=== PATIENT | female | born 1975 | race Caucasian/White ===

== ENCOUNTER 2019-03-20 21:45 | Emergency (ER) | payer BC, MEDICAID ==
[~2019-03-20] VITALS: Ht 188 cm; Wt 100.0 kg
[2019-03-20] MEDS ORDERED: KETOROLAC 15MG/ML VIAL IM ONE (23:30)
[2019-03-20] MEDS ORDERED: ACETAMINOPHEN WITH CODEINE 300/30MG TABLET PO ONE (23:30)
[2019-03-21 01:19] VITALS: BP 145/69
== END 2019-03-21 01:20 | disposition home or self-care (01) ==
LOC: ER 21:45
DX: S00.83XA Contusion of other part of head, initial encounter (principal); M25.521 Pain in right elbow; I10 Essential (primary) hypertension; F43.10 Post-traumatic stress disorder, unspecified; F17.200 Nicotine dependence, unspecified, uncomplicated; Z88.0 Allergy status to penicillin; Z88.8 Allergy status to other drugs, medicaments and biological substances; Z90.89 Acquired absence of other organs; Z98.890 Other specified postprocedural states; Y04.8XXA Assault by other bodily force, initial encounter; Y93.89 Activity, other specified; Y92.89 Other specified places as the place of occurrence of the external cause; Y99.8 Other external cause status
CPT/HCPCS: 96372; 99283; J1885